=== PATIENT | male | born 1965 | race Caucasian/White ===

== ENCOUNTER → 2016-10-27 | Outpatient (CLI) | payer MEDICARE ==
--- NOTE | 2016-10-28 12:17 | RAD ---
History: Cough. Chest x-ray: PA and lateral views are compared with 2014 exam. Contour of the heart and mediastinum is normal. No pulmonary infiltrate or effusion. Mild degenerative changes thoracic spine. Anterior cervical fusion and right shoulder surgical changes are partially seen. IMPRESSION: No active process in the chest. Electronically signed by: Kimberley James MD 10/28/2016 12:16 PM CABIN [employer]
--- NOTE | 2016-11-01 00:44 | RAD ---
History: Cough. Chest x-ray: PA and lateral views are compared with 2014 exam. Contour of the heart and mediastinum is normal. No pulmonary infiltrate or effusion. Mild degenerative changes thoracic spine. Anterior cervical fusion and right shoulder surgical changes are partially seen. IMPRESSION: No active process in the chest. Electronically signed by: Kimberley James MD 10/28/2016 12:16 PM [employer]
== END | disposition home or self-care (01) ==
LOC: YCFC.O 12:23
PROVIDERS: ATTEND Nurse Practitioner Family
DX: J18.9 Pneumonia, unspecified organism (principal)

== ENCOUNTER → 2017-02-16 | Outpatient (CLI) | payer MEDICARE ==
--- NOTE | 2017-02-16 17:20 | RAD ---
EXAM DESCRIPTION: Chest,2 Views CLINICAL HISTORY: DECREASED BREATH SOUNDS COMPARISON: October 27, 2016 TECHNIQUE: PA/lateral FINDINGS: The lungs are well expanded and clear. No infiltrates or effusions or masses are noted. The heart is normal in size and shape with no evidence of vascular congestion. The jose roberto and mediastinum demonstrate normal contours. The bony spine and chest wall is normal for age in appearance. IMPRESSION: Normal chest, two views Electronically signed by: Cam Dwyer MD 02/16/2017 5:20 PM CDT
== END | disposition home or self-care (01) ==
LOC: RAD 15:55
PROVIDERS: ATTEND Nurse Practitioner Family
DX: R09.89 Other specified symptoms and signs involving the circulatory and respiratory systems (principal)

== ENCOUNTER → 2017-12-27 | Outpatient (CLI) | payer MEDICARE | LOC: GMAM 11:26 | PROVIDERS: ATTEND Family Medicine | DX: E03.9 Hypothyroidism, unspecified (principal) ==

== ENCOUNTER → 2018-01-05 | Outpatient (CLI) | payer MEDICARE ==
--- NOTE | 2018-01-05 11:17 | US ---
History: Elevated liver function tests Right upper quadrant ultrasound: The liver is of increased echogenicity with attenuation of the ultrasound demonstrated. No focal abnormality is seen. No intrahepatic ductal dilatation is apparent. The common duct is within normal limits at 5 to 6 mm. The gallbladder appears unremarkable. No stones, wall thickening or surrounding edema. Visualized pancreas, aorta and IVC are normal. The right kidney is unremarkable and measures 12.0 cm in length. There is a 10 mm simple cyst in the mid upper portion of the right kidney. IMPRESSION: Moderate fatty infiltration of the liver. Electronically signed by: Kimberley James MD 01/05/2018 11:16 AM CDT Workstation: [id number]
== END ==
LOC: US 09:14
PROVIDERS: ATTEND Family Medicine
DX: R94.5 Abnormal results of liver function studies (principal); K76.0 Fatty (change of) liver, not elsewhere classified

== ENCOUNTER → 2018-04-05 | Outpatient (CLI) | payer MEDICARE ==
--- NOTE | 2018-04-05 12:00 | US ---
EXAM DESCRIPTION: Liver CLINICAL HISTORY: 52 years Male, R94.5 COMPARISON: Ultrasound of the liver dated 01/05/2018. TECHNIQUE: Multiple transverse and longitudinal static sonographic images through the right upper quadrant of the abdomen were obtained. FINDINGS: Visualized portions of the pancreas appear normal. The liver demonstrates increased echogenicity representing fatty infiltration versus parenchymal disease. No focal masses are identified sonographically. The gallbladder is well distended with no gross abnormality. No evidence of wall thickening or hyperemia or pericholecystic fluid. The common duct is nondilated and measures 3.1 mm. The right kidney measures 9.8 x 5.8 x 5.9 cm. 1 x 0.8 x 1 cm simple cyst is identified in the upper pole. No hydronephrosis or perinephric fluid collections. IMPRESSION: Hepatic steatosis versus parenchymal disease. Electronically signed by: Kristy Ac MD 04/05/2018 11:58 AM CDT
== END ==
LOC: US 08:47
PROVIDERS: ATTEND Internal Medicine Rheumatology
DX: R94.5 Abnormal results of liver function studies (principal); K76.0 Fatty (change of) liver, not elsewhere classified

== ENCOUNTER 2018-05-16 10:28 | Emergency (ER) | payer MEDICARE ==
[2018-05-16 11:16] VITALS: TEMP 96.8
[2018-05-16] MEDS ORDERED: DEX 5% W/NACL 0.45% 1000ML 1,000 ML IVS PRN (11:17)
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
[2018-05-16 13:04] VITALS: BP 148/92; O2SAT 97
== END 2018-05-16 13:20 | disposition home or self-care (01) ==
LOC: ER 10:28
DX: T38.3X1A Poisoning by insulin and oral hypoglycemic [antidiabetic] drugs, accidental (unintentional), initial encounter (principal); R42 Dizziness and giddiness; E10.9 Type 1 diabetes mellitus without complications; I10 Essential (primary) hypertension; Z79.84 Long term (current) use of oral hypoglycemic drugs
CPT/HCPCS: 36415; 36416; 80053; 81001; 82948; 85025; J7799

== ENCOUNTER → 2018-07-05 | Outpatient (CLI) | payer MEDICARE | LOC: GMAM 10:31 | PROVIDERS: ATTEND Family Medicine | DX: E03.9 Hypothyroidism, unspecified (principal); Z12.5 Encounter for screening for malignant neoplasm of prostate | CPT/HCPCS: 84439; 84443; G0103 ==

== ENCOUNTER → 2018-09-28 | Outpatient (CLI) | payer MEDICARE | LOC: GMAJS 11:59 | PROVIDERS: ATTEND Physician Assistant | DX: E03.9 Hypothyroidism, unspecified (principal) ==

== ENCOUNTER → 2018-11-20 | Outpatient (CLI) | payer MEDICARE | LOC: GMAM 10:59 | PROVIDERS: ATTEND Family Medicine | DX: E03.9 Hypothyroidism, unspecified (principal); E29.1 Testicular hypofunction ==

== ENCOUNTER → 2019-04-05 | Outpatient (CLI) | payer MEDICARE | LOC: GMAM 14:26 | PROVIDERS: ATTEND Family Medicine | DX: E53.8 Deficiency of other specified B group vitamins (principal); E55.9 Vitamin D deficiency, unspecified; I10 Essential (primary) hypertension; E29.1 Testicular hypofunction ==

== ENCOUNTER → 2019-06-04 | Outpatient (CLI) | payer MEDICARE | LOC: GMAM 10:33 | PROVIDERS: ATTEND Family Medicine | DX: M06.89 Other specified rheumatoid arthritis, multiple sites (principal) ==

== ENCOUNTER → 2020-04-14 | Outpatient (CLI) | payer MEDICARE | LOC: GMAM 11:25 | PROVIDERS: ATTEND Family Medicine | DX: E53.8 Deficiency of other specified B group vitamins (principal); E03.9 Hypothyroidism, unspecified; E55.9 Vitamin D deficiency, unspecified; I10 Essential (primary) hypertension; E11.9 Type 2 diabetes mellitus without complications; E78.2 Mixed hyperlipidemia; E29.1 Testicular hypofunction ==